=== PATIENT | female | born 1975 | race Caucasian/White ===

== ENCOUNTER 2016-08-23 12:44 | Emergency (ER) | payer OTHER ==
[~2016-08-23] VITALS: Ht 167.6 cm; Wt 84.0 kg
[~2016-08-23 12:44] MED LIST: ALBU8.5H3 INH; ALPR1TAB2 PO; GEMF600T PO; HYDR-762 PO; LISI-313 PO; METF-382 PO; PARO20TA58 PO; RISP4TAB2 PO
[2016-08-23 12:48] VITALS: Ht 167.6 cm; Wt 84.0 kg
--- NOTE | 2016-08-23 13:48 | ERD ---
ER Documentation Chief Complaint Date/Time DATE: 08/23/16 TIME: 13:46 Chief Complaint ENCOUNTER FOR MED REFILL; RECENTLY CHANGED DOCTORS HPI This is a 40-year-old female presents to the emergency room for a medication refill. This patient recently changed doctors and states she needs a prescription for Soma, Anderson, and "another muscle relaxer". The patient denies any complaints at this time except for chronic hand pain. She states she was unable to see her primary care physician due to insurance changes. ROS All systems reviewed and are negative except as per history of present illness. Medications Home Meds Reported Medications Metformin Hcl* (Metformin Hcl*) 500 Mg Tablet, 500 MG PO BID, TAB 12/19/14 Gemfibrozil* (Lopid*) 600 Mg Tablet, 600 MG PO BID, TAB 12/19/14 Alprazolam* (Xanax*) 1 Mg Tab, 1 MG PO BID Y for ANXIETY, TAB 12/19/14 Albuterol Sulfate* (Proair HFA*) 8.5 Gm Hfa.aer.ad, 2 PUFF INH Q6H Y for WHEEZING AND SOB, INH 12/19/14 Paroxetine Hcl* (Paxil*) 20 Mg Tablet, 20 MG PO HS, TAB 12/19/14 Risperidone* (Risperidone*) 4 Mg Tablet, 4 MG PO BID, TAB 12/19/14 Lisinopril* (Lisinopril*) 5 Mg Tablet, 5 MG PO DAILY, TAB 12/19/14 Hydrocodone Bit-Acetaminophen* (Anderson*) 10-325 Mg Tablet, 1 TAB PO Q4H Y for PAIN, TAB 12/19/14 Allergies Allergies: Coded Allergies: No Known Drug Allergies (Verified Allergy, Mild, 12/19/14) PMhx/Soc History of Surgery: Yes (SARAH MOJICA) Anesthesia Reaction: No Hx Neurological Disorder: No Hx Respiratory Disorders: No Hx Cardiac Disorders: No Hx Psychiatric Problems: Yes (DEPRESSION,) Hx Miscellaneous Medical Probl: No Hx Alcohol Use: No Hx Substance Use: Yes Hx Tobacco Use: Yes Physical Exam Vitals Vital Signs Date Time Temp Pulse Resp B/P Pulse Ox O2 Delivery O2 Flow Rate FiO2 08/23/16 12:48 97.9 109 20 131/89 96 Physical Exam Const: No acute distress Head: Atraumatic Eyes: Normal Conjunctiva ENT: Normal External Ears, Nose and Mouth. Neck: Full range of motion..~ No meningismus. Resp: Clear to auscultation bilaterally Cardio: Regular rate and rhythm, no murmurs Abd: Soft, non tender, non distended. Normal bowel sounds Skin: No petechiae or rashes Back: No midline or flank tenderness Ext: No cyanosis, or edema Neur: Awake and alert Psych: Normal Mood and Affect Procedures/MDM This 40-year-old female presents to the ER for a medication refill of Anderson, Soma, and an unknown muscle relaxer. I advised her that coming to the emergency room for a medication refill is not appropriate. I have looked at her previous medical history and she has been in the emergency room multiple times for the same. I advised that I will give her 10 tabs of Anderson to go home with. I am not comfortable giving her any muscle relaxers or Soma along with Anderson as the combination of these medications can be deadly. The patient is in agreement with her plan of care and will be discharged at this time. Smoking Cessation Therapy: Pt. was lectured for greater than 3 minutes on the health risks of continued smoking and the benefits of cessation. Departure Diagnosis: Primary Impression: Encounter for medication refill Additional Impressions: Tobacco abuse Tobacco abuse counseling Condition: VASQUEZ Chen DO Aug 23, 2016 13:48
[2016-08-23] MEDS ORDERED: HYDR-906 PO (13:49)
== END 2016-08-23 14:09 | disposition home or self-care (01) ==
LOC: FTE 12:44
DX: Z76.0 Encounter for issue of repeat prescription (principal); F17.210 Nicotine dependence, cigarettes, uncomplicated; E11.9 Type 2 diabetes mellitus without complications; Z71.6 Tobacco abuse counseling; Z79.84 Long term (current) use of oral hypoglycemic drugs
CPT/HCPCS: 99281

== ENCOUNTER 2016-12-18 19:48 | Emergency (ER) | payer OTHER ==
[~2016-12-18] VITALS: Ht 167.6 cm; Wt 76.0 kg
[~2016-12-18 19:48] MED LIST changes: +HYDR-906 PO; -METF-382 PO; +METF500T4 PO
[2016-12-18 19:52] VITALS: Ht 167.6 cm; Wt 76.0 kg
[2016-12-18 21:30] LABS: ADD SCAN DIFF NO
[2016-12-18 21:31] LABS: BASOPHIL # 0.1 10^3/ul (0.0-0.1); BASOPHILS % 0.6 % (0.0-2.0); EOSINOPHILS # 0.1 10^3/ul (0.0-0.5); EOSINOPHILS % 1.4 % (0.0-7.0); HEMATOCRIT 43.6 % (37.0-47.0); HEMOGLOBIN 14.4 g/dl (12.0-16.0); LYMPHOCYTES # 3.6 10^3/ul (0.8-2.9); LYMPHOCYTES % 37.5 % (15.0-51.0); MEAN CORPUSCULAR HEMOGLOBIN 29.6 pg (29.0-33.0); MEAN CORPUSCULAR VOLUME 89.5 fl (82.0-101.0); MEAN PLATELET VOLUME 9.8 fl (7.4-10.4); MONOCYTES % 10.2 % (0.0-11.0); NEUTROPHIL # 4.8 10^3/ul (1.6-7.5); NEUTROPHILS % 49.7 % (39.0-77.0); PLATELET COUNT 312 10^3/UL (140-415); RED BLOOD COUNT 4.87 10^6/ul (4.20-5.40); RED CELL DISTRIBUTION WIDTH 13.3 % (11.5-14.5); WHITE BLOOD COUNT 9.6 10^3/ul (4.8-10.8)
[2016-12-18 21:34] LABS: ADD UMIC YES; UR ASCORBIC ACID NEGATIVE (NEGATIVE); UR BACTERIA FEW /HPF (NONE SEEN); UR BILIRUBIN (Dip) 1+ mg/dL (NEGATIVE); UR BLOOD (Dip) 2+ mg/dL (NEGATIVE); UR CLARITY CLOUDY (CLEAR); UR COLOR AMBER (YELLOW); UR GLUCOSE (Dip) NEGATIVE (NEGATIVE); UR KETONES (Dip) TRACE mg/dL (NEGATIVE); UR LEUKOCYTE ESTERASE (Dip) TRACE Leu/ul (NEGATIVE); UR MUCUS MANY /HPF (NONE SEEN); UR NITRITE (Dip) NEGATIVE (NEGATIVE); UR RBC 2 /HPF (0-5); UR SPECIFIC GRAVITY (Dip) 1.029 (1.003-1.030); UR SQUAMOUS EPITHELIAL CELL MANY /HPF (FEW); UR TOTAL PROTEIN (Dip) 1+ mg/dl (NEGATIVE); UR UROBILINOGEN (Dip) 1+ mg/dL (NEGATIVE)
--- NOTE | 2016-12-18 21:34 | RADRPT ---
PROCEDURE: US Pelvis. CLINICAL INDICATION: Right pelvic pain. TECHNIQUE: The pelvis was evaluated with transabdominal and transvaginal sonography in the axial a nd sagittal planes. COMPARISON: No prior study is available for comparison. FINDINGS: Uterus: 6.9 x 4.2 x 5.2 cm. Endometrium: 6.9 mm. Right ovary: 3.1 x 1.6 x 1.9 cm. Left ovary: 2.9 x 1.2 x 1.6 cm. Uterine masses: None. The uterus is retroverted. Ovarian masses: None. Color Doppler and pulsed Doppler sonography demonstrate normal flow to the ova divya. Other pelvic masses: None. Free fluid: None. IMPRESSION: 1. Retroverted uterus. 2. Otherwise normal pelvic ultrasound. RPTAT: QQ .Gerhard Saldivar MD, Date Time Electronically viewed and signed by .Gerhard Saldivar MD, on 12/18/2016 21:33 .R/
[2016-12-18 21:59] LABS: ALBUMIN 4.6 g/dl (3.3-4.9); ALBUMIN/GLOBULIN RATIO 1.76; CALCIUM 9.1 mg/dl (8.4-10.2); CREATININE 0.74 mg/dl (0.44-1.00); POTASSIUM 3.6 mmol/L (3.5-5.1); TOTAL PROTEIN 7.2 g/dl (6.1-8.1)
[2016-12-18] MEDS ORDERED: IBUP-1542 PO (23:54)
[2016-12-18] MEDS ORDERED: CEPH-443 PO (23:54)
[2016-12-19 00:21] VITALS: BP 122/80; PULSE 77; RESP 20; TEMP 98.2
--- NOTE | 2016-12-26 15:05 | ERD ---
ER Documentation Chief Complaint Date/Time DATE: 12/26/16 TIME: 15:02 Chief Complaint abd pain for a month HPI 40-year-old female otherwise healthy comes emergency room with lower abdominal pain on and off for months now. She describes in the superior region, radiates to her pelvis, it is sharp, intermittent moderate pain. She has not had any fevers, chills, vomiting. Denies diarrhea. Denies shortness of breath or chest pain. ROS All systems reviewed and are negative except as per history of present illness. Medications Home Meds Active Scripts Ibuprofen* (Motrin*) 600 Mg Tab, 600 MG PO Q6, #30 TAB Prov:KRISTEN CHUNG PA-C 12/18/16 Cephalexin* (Keflex*) 500 Mg Capsule, 500 MG PO TID for 7 Days, CAP Prov:KRISTEN CHUNG PA-C 12/18/16 Hydrocodone/Acetaminophen (Allen 5-325 Tablet) 1 Each Tablet, 1 TAB PO Q6H Y for PAIN, #10 TAB Prov:VASQUEZ SALMON DO 08/23/16 Reported Medications Metformin Hcl* (Metformin Hcl*) 500 Mg Tablet, 500 MG PO BID, TAB 12/19/14 Gemfibrozil* (Lopid*) 600 Mg Tablet, 600 MG PO BID, TAB 12/19/14 Alprazolam* (Xanax*) 1 Mg Tab, 1 MG PO BID Y for ANXIETY, TAB 12/19/14 Albuterol Sulfate* (Proair HFA*) 8.5 Gm Hfa.aer.ad, 2 PUFF INH Q6H Y for WHEEZING AND SOB, INH 12/19/14 Paroxetine Hcl* (Paxil*) 20 Mg Tablet, 20 MG PO HS, TAB 12/19/14 Risperidone* (Risperidone*) 4 Mg Tablet, 4 MG PO BID, TAB 12/19/14 Lisinopril* (Lisinopril*) 5 Mg Tablet, 5 MG PO DAILY, TAB 12/19/14 Hydrocodone Bit-Acetaminophen* (Allen*) 10-325 Mg Tablet, 1 TAB PO Q4H Y for PAIN, TAB 12/19/14 Allergies Allergies: Coded Allergies: No Known Drug Allergies (Verified Allergy, Mild, 12/19/14) PMhx/Soc History of Surgery: Yes (TUMMY TUCK, breast augmentaion ) Anesthesia Reaction: No Hx Neurological Disorder: No Hx Respiratory Disorders: No Hx Cardiac Disorders: No Hx Psychiatric Problems: Yes (DEPRESSION,) Hx Miscellaneous Medical Probl: No Hx Alcohol Use: No Hx Substance Use: Yes Hx Tobacco Use: Yes (1/2 pack a day) Smoking Status: Current every day smoker Physical Exam Physical Exam General: Well-developed, well-nourished. The patient appears in no acute distress. HEENT: Head is normocephalic, atraumatic. No scleral icterus. Neck: Supple. Nontender. Lungs: Clear to auscultation. Normal air movement. Heart: Regular rate and rhythm. S1 and S2 are normal. No murmurs, gallops, or rubs. Abdomen: Soft, nontender, nondistended. Bowel sounds are normoactive. Extremities: No clubbing or cyanosis. Normal pulses. Moving extremities x 4. No weakness. Neurologic: Alert and oriented 3. No focal deficits. Skin: Normal turgor. No rash or lesions. Results 24 hrs Laboratory Tests Test 12/18/16 20:55 12/18/16 21:16 Urine Color TETE Urine Clarity CLOUDY Urine pH 5.0 Urine Specific [place] 1.029 Urine Ketones TRACEmg/dL Urine Nitrite NEGATIVEmg/dL Urine Bilirubin 1+mg/dL Urine Urobilinogen 1+mg/dL Urine Leukocyte Esterase TRACELeu/ul Urine Microscopic RBC 2/HPF Urine Microscopic WBC 4/HPF Urine Squamous Epithelial Cells MANY/HPF Urine Calcium Oxalate Crystals MANY/HPF Urine Bacteria FEW/HPF Urine Mucus MANY/HPF Urine Hemoglobin 2+mg/dL Urine Glucose NEGATIVEmg/dL Urine Total Protein 1+mg/dl Urine Test NEGATIVE White Blood Count 9.610^3/ul Red Blood Count 4.8710^6/ul Hemoglobin 14.4g/dl Hematocrit 43.6% Mean Corpuscular Volume 89.5fl Mean Corpuscular Hemoglobin 29.6pg Mean Corpuscular Hemoglobin Concent 33.0g/dl Red Cell Distribution Width 13.3% Platelet Count 20083^3/UL Mean Platelet Volume 9.8fl Neutrophils % 49.7% Lymphocytes % 37.5% Monocytes % 10.2% Eosinophils % 1.4% Basophils % 0.6% Nucleated Red Blood Cells % 0.0/100WBC Neutrophils # 4.810^3/ul Lymphocytes # 3.610^3/ul Monocytes # 1.010^3/ul Eosinophils # 0.110^3/ul Basophils # 0.110^3/ul Nucleated Red Blood Cells # 0.010^3/ul Sodium Level 144mmol/L Potassium Level 3.6mmol/L Chloride Level 104mmol/L Carbon Dioxide Level 27mmol/L Anion Gap 17 Blood Urea Nitrogen 8mg/dl Creatinine 0.74mg/dl Glucose Level 102mg/dl Calcium Level 9.1mg/dl Total Bilirubin 0.0mg/dl Direct Bilirubin 0.00mg/dl Indirect Bilirubin 0.0mg/dl Aspartate Amino Transf (AST/SGOT) 15IU/L Alanine Aminotransferase (ALT/SGPT) 23IU/L Alkaline Phosphatase 88IU/L Total Protein 7.2g/dl Albumin 4.6g/dl Globulin 2.60g/dl Albumin/Globulin Ratio 1.76 DIAGNOSTIC IMAGING REPORT Patient: ENRRIQUE SWARTZ : 1975 Age: 41 Sex: F MR #: [id number] DOS: 12/18/162044 Ordering MD: KRISTEN CHUNG PA-C Location: [facility] Room/Bed: PROCEDURE: US Pelvis. CLINICAL INDICATION: Right pelvic pain. TECHNIQUE: The pelvis was evaluated with transabdominal and transvaginal sonography in the axial and sagittal planes. COMPARISON: No prior study is available for comparison. FINDINGS: Uterus: 6.9 x 4.2 x 5.2 cm. Endometrium: 6.9 mm. Right ovary: 3.1 x 1.6 x 1.9 cm. Left ovary: 2.9 x 1.2 x 1.6 cm. Uterine masses: None. The uterus is retroverted. Ovarian masses: None. Color Doppler and pulsed Doppler sonography demonstrate normal flow to the ovaries. Other pelvic masses: None. Free fluid: None. IMPRESSION: 1. Retroverted uterus. 2. Otherwise normal pelvic ultrasound. RPTAT: QQ .Gerhard Saldivar MD, Date Time Electronically viewed and signed by .Gerhard Saldivar MD, MD on 12/18/2016 21:33 .R/ CC: KRISTEN CHUNG PA-C Procedures/MDM 40-year-old female comes in the lower abdominal pain, and has been on and off for a month. There is no evidence of tubo-ovarian abscess, , ovarian torsion, ovarian masses and labs are unremarkable, no leukocytosis. Urine shows a possible urinary tract infection given her significant abdominal pain patient will be treated for UTI. Departure Diagnosis: Primary Impression: Abdominal pain Condition: Good Patient Instructions: Abdominal Pain, Understanding Urinary Tract Infections ( UTIs) Additional Instructions: Call your primary care doctor TOMORROW for an appointment during the next 1-2 days.See the doctor sooner or return here if your condition worsens before your appointment time. KRISTEN CHUNG PA-C Dec 26, 2016 15:04
== END 2016-12-19 00:22 | disposition home or self-care (01) ==
LOC: FTE 19:48
DX: R10.30 Lower abdominal pain, unspecified (principal); R10.2 Pelvic and perineal pain; F17.210 Nicotine dependence, cigarettes, uncomplicated
CPT/HCPCS: 36415; 76830; 76856; 80053; 81001; 84703; 85025; Z7502

== ENCOUNTER 2017-08-16 19:26 | Emergency (ER) | END 2017-08-16 21:20 | disposition home or self-care (01) ==

== ENCOUNTER 2017-08-20 21:30 | Emergency (ER) | END 2017-08-20 23:53 | disposition left against medical advice (07) ==

== ENCOUNTER 2017-10-17 20:54 | Emergency (ER) | END 2017-10-17 22:04 | disposition home or self-care (01) ==

== ENCOUNTER 2017-11-15 19:33 | Emergency (ER) | END 2017-11-15 23:30 | disposition home or self-care (01) ==

== ENCOUNTER 2018-03-12 15:14 | Emergency (ER) | END 2018-03-12 17:31 | disposition left against medical advice (07) ==

== ENCOUNTER 2018-05-08 19:46 | Emergency (ER) | END 2018-05-09 14:09 ==

== ENCOUNTER 2018-10-27 16:42 | Emergency (ER) | payer MEDICAID, OTHER ==
[~2018-10-27] VITALS: Ht 157.5 cm; Wt 66.1 kg
[2018-10-27 16:48] VITALS: BP 117/73; PULSE 104; RESP 18; Ht 157.5 cm; Wt 66.1 kg
--- NOTE | 2018-10-28 00:49 | ERD ---
ER Documentation Chief Complaint Chief Complaint BACK PAIN HPI History of Present Illness: 42-year-old female with no past medical history coming in today with complaint of bilateral, lumbar back pain. Patient denies injury or trauma. Patient denies genitourinary symptoms. At home pharmacological/nonpharmacological treatment for symptoms: " Some kind of pain medicine. It has been KNOCKED out" Denies social concerns; Denies recent foreign travel ROS All systems reviewed and are negative except as per history of present illness. Allergies Allergies: Coded Allergies: No Known Drug Allergies (Verified Allergy, Mild, 12/19/14) PMhx/Soc History of Surgery: Yes (TUMMY TUCK, breast augmentaion ) Anesthesia Reaction: No Hx Neurological Disorder: No Hx Respiratory Disorders: No Hx Cardiac Disorders: No Hx Psychiatric Problems: Yes (DEPRESSION, Schizophrenia,bipolar) Hx Miscellaneous Medical Probl: No Hx Alcohol Use: No Hx Substance Use: No Hx Tobacco Use: No (1/2pack/day) Physical Exam Vitals Vital Signs Date Temp Pulse Resp B/P (MAP) Pulse Ox O2 O2 Flow FiO2 Time Delivery Rate 10/27/18 98.2 104 18 117/73 100 16:48 (88) Physical Exam Const: No acute distress, appears drowsy Head: Atraumatic Eyes: Normal Conjunctiva ENT: Normal External Ears, Nose and Mouth. Neck: Full range of motion. No meningismus. Resp: Clear to auscultation bilaterally Cardio: Regular rate and rhythm, no murmurs Abd: Soft, non tender, non distended. Normal bowel sounds Skin: No petechiae or rashes Back: No midline or flank tenderness; unable to reproduce pain with palpation; I took those meds I cannot feel the pain"" Ext: No cyanosis, or edema Neur: Awake and alert, speaking clear sentences, answering questions appropriately, no focal neuro deficits Psych: Normal Mood and Affect Procedures/MDM ED course includes a thorough examination and history. Medications: Imaging: Labs: Urinalysis No respiratory distress, otherwise relatively well appearing and nontoxic. Unable to complete visit. Patient did not supply urinalysis sample. Disposition: Eloped Departure Diagnosis: Primary Impression: Back pain Back pain location: low back pain Chronicity: acute Back pain laterality: bilateral Sciatica presence: without sciatica Qualified Codes: M54.5 - Low back pain Condition: Stable VIRGEN MACDONALD NP October 28, 2018 00:49
== END 2018-10-27 19:32 | disposition left against medical advice (07) ==
LOC: FTE 16:42
DX: M54.5 Low back pain (principal); Z87.891 Personal history of nicotine dependence
CPT/HCPCS: 99282

== ENCOUNTER 2018-10-28 00:34 | Emergency (ER) | payer OTHER ==
[~2018-10-28] VITALS: Ht 167.6 cm; Wt 67.1 kg
[2018-10-28 00:40] VITALS: BP 117/77; PULSE 88; RESP 18; Ht 167.6 cm; Wt 67.1 kg
--- NOTE | 2018-10-28 17:34 | ERD ---
ER Documentation Chief Complaint Chief Complaint Wants to have urine checked,denies dysuria or abd pain HPI History of Present Illness: 42-year-old female with no past medical history coming in today with complaint of bilateral, lumbar back pain. Patient denies injury or trauma. Patient denies genitourinary symptoms. Patient had a eloped earlier, but returned for reevaluation. At home pharmacological/nonpharmacological treatment for symptoms: Patient reports taking a pain medication earlier during the day that helps with pain and cause drowsiness. Denies social concerns; Denies recent foreign travel ROS All systems reviewed and are negative except as per history of present illness. Allergies Allergies: Coded Allergies: No Known Drug Allergies (Verified Allergy, Mild, 12/19/14) PMhx/Soc History of Surgery: Yes (TUMMY TUCK, breast augmentaion ) Anesthesia Reaction: No Hx Neurological Disorder: No Hx Respiratory Disorders: No Hx Cardiac Disorders: No Hx Psychiatric Problems: Yes (DEPRESSION, Schizophrenia,bipolar) Hx Miscellaneous Medical Probl: No Hx Alcohol Use: No Hx Substance Use: No Hx Tobacco Use: No (1/2pack/day) Physical Exam Vitals Vital Signs Date Temp Pulse Resp B/P (MAP) Pulse Ox O2 O2 Flow FiO2 Time Delivery Rate 10/28/18 97.8 88 18 117/77 98 00:40 (90) Physical Exam Physical Exam Const: No acute distress, appears drowsy Head: Atraumatic Eyes: Normal Conjunctiva ENT: Normal External Ears, Nose and Mouth. Neck: Full range of motion. No meningismus. Resp: Clear to auscultation bilaterally Cardio: Regular rate and rhythm, no murmurs Abd: Soft, non tender, non distended. Normal bowel sounds Skin: No petechiae or rashes Back: No midline; bilateral flank pain Ext: No cyanosis, or edema Neur: Awake and alert, speaking clear sentences, answering questions appropriately, no focal neuro deficits Psych: Normal Mood and Affect Results 24 hrs Laboratory Tests Test 10/28/18 01:20 Urine Color TETE Urine Clarity CLOUDY Urine pH 5.0 Urine Specific [place] 1.044 Urine Ketones TRACE mg/dL Urine Nitrite NEGATIVE mg/dL Urine Bilirubin 2+ mg/dL Urine Urobilinogen 2+ mg/dL Urine Leukocyte Esterase TRACE Jose Alberto/ul Urine Microscopic RBC 179 /HPF Urine Microscopic WBC 12 /HPF Urine Squamous Epithelial Cells FEW /HPF Urine Calcium Oxalate Crystals MANY /HPF Urine Bacteria FEW /HPF Urine Mucus MODERATE /HPF Urine Hemoglobin 3+ mg/dL Urine Glucose NEGATIVE mg/dL Urine Total Protein 1+ mg/dl Procedures/MDM E course includes a thorough examination and history. Medications: Imaging: Labs: Urinalysis No respiratory distress, otherwise relatively well appearing and nontoxic. patient presenting with constellation of symptoms likely representing urinary tract infection or kidney stone as characterized by history, physical exam findings, lab findings. Urinalysis positive for leukocyte Estrace, WBCs, RBCs, calcium crystals, bacteria, hemoglobin. No respiratory distress, otherwise relatively well appearing and nontoxic. Disposition: Eloped; went to discuss lab results with patient as well as plan of care for imaging as well as additional questions for history and physical, and patient was nowhere to be found. planning technician stated that patient had fell asleep in various places in the waiting room and had went outside but then return; but still unable to locate patient. Departure Diagnosis: Primary Impression: Back pain Back pain location: low back pain Chronicity: acute Back pain laterality: bilateral Sciatica presence: without sciatica Qualified Codes: M54.5 - Low back pain Condition: Stable VIRGEN MACDONALD NP October 28, 2018 17:34
== END 2018-10-28 03:53 | disposition left against medical advice (07) ==
LOC: FTE 00:34
DX: M54.5 Low back pain (principal); F17.210 Nicotine dependence, cigarettes, uncomplicated
CPT/HCPCS: 81001; Z7502; 99283